=== PATIENT | male | born 1980 ===

== ENCOUNTER 2020-07-22 00:49 | Outpatient (CLI) | payer OTHER, SELFPAY ==
[2020-07-22 18:46] LABS: SARS-CoV-2 RNA PCR Negative
== END 2020-07-22 00:50 | disposition home or self-care (01) ==
LOC: ANHCOVIDDT 00:49
PROVIDERS: Visit Provider Internal Medicine Critical Care Medicine
DX: Z01.812 Encounter for preprocedural laboratory examination (principal); Z20.822 Contact with and (suspected) exposure to COVID-19
CPT/HCPCS: C9803; U0003; U0005

== ENCOUNTER 2020-07-25 09:11 | Outpatient (CLI) | payer OTHER, SELFPAY ==
--- NOTE | 2020-08-27 11:16 | P.SLEEP_ITS ---
Sleep Study Date of Study: 07/25/20 Ordering Provider: Edison Kahn MD Interpreting Physician: Nakul Hunter MD Sleep Study Type: Split Polysomnogram Height: 1.78 m Weight: 170.097 kg Body Mass Index: 53.8 Neck Circumference: 56.52 cm [place]: 17 Reason for Sleep Study Severe symptoms consistent with obstructive sleep apnea. Sleep History Loud disruptive snoring, nonrestorative sleep, daytime sleepiness. Comorbid conditions include morbid obesity, hypertension, depression, hypothyroidism. Sleep Procedure Patient underwent overnight polysomnographic evaluation using split night protocol. Sleep Architecture Diagnostic study - Total recording time 158 minutes, total sleep time 139.5 minutes, sleep efficiency 88.3%. Sleep latency 7 minutes, no REM sleep. Awake after sleep onset 11 minutes, stage N1 12.5%, N2 87.5%, N3 0%, stage R 0%. Supine sleep 100%. Treatment study - Total recording time 343 minutes, total sleep time 311 minutes, sleep efficiency 90.6%. Sleep latency 6 minutes, REM latency 72 minutes. Awake after sleep onset 26 minutes, stage N1 3.5%, N2 50.4%, N3 0%, stage R 46%.. Supine sleep 100%, supine REM sleep 31.8%. Respiratory Analysis CMS criteria used. Diagnostic study - 22 apneas, 21 obstructive and 1 central. Apnea index 9.5, 188 hypopneas with index 80.9. AHI 90.3. Treatment study - 8 apneas, all central. Apnea index 1.5, 104 hypopneas with index 20.0. For AHI 21.6. REM index 6.3, non-REM index 34.6. Arousals Diagnostic study- total arousals 107 with index 40.6. Snores 50, hypopneas 42, apneas 4, spontaneous 10. Treatment study -total arousals 44 with index 7.7. Spontaneous 14, snores 13, hypopnea 17. Periodic Limb Movements Diagnostic study - 3 isolated leg movements index 1.3, 1 arousal with index 0.4, no PLM. Treatment study - no leg movements. Oximetry Data Diagnostic study- mean oxygen saturation 89%, lowest oxygen saturation 73%. SaO2<90%-62Min, SaO2<88%-49Min. Treatment study - mean oxygen saturation 92%, lowest saturation 68%. SaO2<90%-56Min, SaO2<88%-45Min. Snoring Profile Continuous loud snoring noted. Cardiac Profile Diagnostic study-- Normal sinus rhythm. Average heart rate 87 beats per minute, range 54 to 135 beats per minute. Treatment study-- average heart rate 81 beats per minute. EEG Profile unremarkable EEG. Assessment and Plan Additional Plan Diagnosis #1-Severe LYN [id number] the diagnostic study was consistent with severe obstructive sleep apnea with AHI of 90. There was significant desaturation associated with these obstructive episodes. Patient qualified for CPAP titration study. CPAP titration study - mask used - air fit F 20 full face mask of large size. Patient's CPAP was started at 5 cm and due to snoring and obstructive events, CPAP was increased in to a maximum level of 17 cm. At CPAP 17 cm, 1 hour and 43 minutes of trial was performed with 100% sleep efficiency. 1 hour and 40 minutes of REM sleep, 2 minutes of non-REM sleep occurred. One hypopnea and 4 central apneas encountered with apnea-hypopnea index of 2.9. Oxygen saturation averaged at 94%, transient desaturation to 89% was noted. Essentially significant desaturation was avoided at this pressure. In terms of management, the use of CPAP at 17 cm with appropriate mask controls the obstructive disorder very well and prevents hypoxia. Other measures would include aggressive weight loss, proper sleep hygiene and correction of upper airway obstruction if present.
[2020-08-27 11:46] VITALS: BMI 53.8
== END 2020-07-25 09:12 | disposition home or self-care (01) ==
LOC: ANHCSM 09:21
PROVIDERS: Visit Provider Otolaryngology
DX: G47.33 Obstructive sleep apnea (adult) (pediatric) (principal)
CPT/HCPCS: 95811